=== PATIENT | male | born 1995 ===

== ENCOUNTER 2019-09-16 02:18 | Inpatient (IN) | payer MEDICAID ==
[~2019-09-16] VITALS: Ht 160 cm; Wt 72.8 kg
[2019-09-16] MEDS ORDERED: ACYC800T PO (03:00)
[2019-09-16] MEDS ORDERED: CLIN300C9 PO (03:00)
[2019-09-16] MEDS ORDERED: IBUP-2070 PO (03:00)
[2019-09-16] MEDS ORDERED: HALOPERIDOL 5 MG TABLET PO PRN (05:15)
[2019-09-16] MEDS ORDERED: LORazepam 2 MG TABLET PO PRN (05:15)
[2019-09-16] MEDS ORDERED: ZOLPIDEM TARTRATE 10 MG TABLET PO PRN (05:15)
[2019-09-16 07:53] LABS: BASOPHILS % (AUTO) 0.5 % (0.0-2.0); EOSINOPHILS % (AUTO) 0.1 % (1.0-6.0); HEMATOCRIT 42.5 % (41-53); HEMOGLOBIN 14.7 g/dL (13.5-17.5); LYMPHOCYTES # (AUTO) 1.5 K/uL (1.0-4.8); LYMPHOCYTES % (AUTO) 16.4 % (22.0-44.0); MEAN CORPUSCULAR HEMOGLOBIN 30.4 pg (26.0-34.0); MEAN CORPUSCULAR HGB CONC 34.7 G/dL (31.0-37.0); MEAN CORPUSCULAR VOLUME 88 fL (80-100); MONOCYTES # (AUTO) 1.1 K/uL (0.1-1.0); MONOCYTES % (AUTO) 11.9 % (2.0-9.0); NEUTROPHILS # (AUTO) 6.6 K/uL (1.8-7.7); NEUTROPHILS % (AUTO) 71.1 % (40.0-70.0); PLATELET COUNT (AUTO) 402 K/uL (150-450); RED BLOOD CELL COUNT(AUTO) 4.85 MIL/uL (4.50-5.90); RED CELL DISTRIBUTION WIDTH 13.1 % (11.5-14.5)
[2019-09-16 08:05] LABS: ANION GAP 11 mmol/L (8-16); CALCIUM, TOTAL 8.2 mg/dL (8.8-10.5); CARBON DIOXIDE 27 mmol/L (22-29); CHLORIDE 104 mmol/L (98-107); CREATININE 1.27 mg/dL (0.60-1.30); GLOMERULAR FILTR. RATE CALC > 60 mL/min (>60); GLUCOSE,RANDOM 97 mg/dL (70-110); POTASSIUM 3.4 mmol/L (3.5-5.1); SODIUM SERUM 142 mmol/L (136-145); UREA NITROGEN, BLOOD 14 mg/dL (7-18)
[2019-09-16 08:09] LABS: ALANINE AMINOTRANSFERASE 88 U/L (12-78); ALBUMIN 3.5 g/dL (3.4-5.0); ALKALINE PHOSPHATASE 133 U/L (46-116); ASPARTATE AMINOTRANSFERASE 49 U/L (15-37); BILIRUBIN,TOTAL 0.4 mg/dL (0.1-1.0); TOTAL PROTEIN, SERUM 7.4 g/dL (6.4-8.2)
[2019-09-16 08:10] LABS: AMPHET/METH SCREEN,URINE POSITIVE (NEGATIVE); BARBITURATE SCREEN, URINE NEGATIVE (NEGATIVE); BENZODIAZEPINES SCREEN,URINE NEGATIVE (NEGATIVE); CANNABINOID SCREEN,URINE NEGATIVE (NEGATIVE); COCAINE SCREEN,URINE POSITIVE (NEGATIVE); METHADONE SCREEN, URINE NEGATIVE (NEGATIVE); OPIATE SCREEN,URINE NEGATIVE (NEGATIVE)
[2019-09-16 08:16] LABS: PHENCYCLIDINE SCREEN,URINE NEGATIVE (NEGATIVE)
[2019-09-16] MEDS ORDERED: ACETAMINOPHEN 500 MG TABLET PO ONE (09:30)
[2019-09-16 17:06] VITALS: BP 122/68
[2019-09-16] MEDS ORDERED: POTASSIUM CHLORIDE 20 MEQ ER TABLET PO ONE (18:15)
[2019-09-17 06:10] VITALS: BP 143/98
[2019-09-17] MEDS ORDERED: ACETAMINOPHEN 325 MG TABLET PO PRN (07:15)
[2019-09-17] MEDS ORDERED: PETROLATUM,WHITE 28 GM JELLY TP PRN (07:15)
[2019-09-17] MEDS ORDERED: DOCUSATE SODIUM 100 MG CAPSULE PO PRN (07:15)
[2019-09-17] MEDS ORDERED: MAGNESIUM HYDROXIDE SUSPENSION 30 ML UDCUP PO PRN (07:15)
[2019-09-17] MEDS ORDERED: ALBUTEROL SULFATE HFA 90 MCG/PUFF 8 GM INHALER IH PRN (07:15)
[2019-09-17] MEDS ORDERED: CloNIDine HCL 0.1 MG TABLET PO PRN (07:15)
[2019-09-17] MEDS ORDERED: NICOTINE 14 MG/24 HOUR PATCH TD PRN (07:15)
[2019-09-17] MEDS ORDERED: ONDANSETRON HCL 4 MG TABLET PO PRN (07:15)
[2019-09-17] MEDS ORDERED: MAG HYDROX/AL HYDROX/SIMETH ES 30 ML SUSPENSION UDCUP PO PRN (07:15)
[2019-09-17] MEDS ORDERED: LOPERAMIDE HCL 2 MG CAPSULE PO PRN (07:15)
[2019-09-17] MEDS ORDERED: GuaiFENesin/D-METHORPHAN [SUGAR-FREE] 200-20MG/10 ML SYRUP UDCUP PO PRN (07:15)
[2019-09-17 08:29] VITALS: BP 133/88
[2019-09-17] MEDS: NICOTINE 7 MG/24 HOUR PATCH TD SCH (08:50)
[2019-09-17] MEDS: IBUPROFEN 400 MG TABLET PO PRN ×2 (14:25→18:25)
[2019-09-17 16:04] VITALS: BP 137/87
[2019-09-18 02:18] VITALS: BP 126/84
[2019-09-18 08:14] VITALS: BP 121/78
[2019-09-18] MEDS: NICOTINE 7 MG/24 HOUR PATCH TD SCH (09:12)
== END 2019-09-18 14:34 | disposition home or self-care (01) | DRG 885 ==
LOC: EMS 02:20 → B3A 05:15 → EMS 15:56 → UNDOADMIN 16:45 → B3A 16:45
DX: F29 Unspecified psychosis not due to a substance or known physiological condition (principal); E87.6 Hypokalemia; F10.10 Alcohol abuse, uncomplicated; F32.9 Major depressive disorder, single episode, unspecified; F14.10 Cocaine abuse, uncomplicated; F15.10 Other stimulant abuse, uncomplicated; Z53.20 Procedure and treatment not carried out because of patient's decision for unspecified reasons; F17.210 Nicotine dependence, cigarettes, uncomplicated; Y90.4 Blood alcohol level of 80-99 mg/100 ml; R74.0 Nonspecific elevation of levels of transaminase and lactic acid dehydrogenase [LDH]; F12.10 Cannabis abuse, uncomplicated
CPT/HCPCS: 84132; G0480

== ENCOUNTER 2019-09-18 14:55 | Emergency (ER) | payer MEDICAID ==
[~2019-09-18] VITALS: Ht 172.7 cm; Wt 70.5 kg
[~2019-09-18 14:55] MED LIST: ACYC800T PO; CLIN300C9 PO; IBUP-2070 PO
[2019-09-18 16:34] VITALS: BP 140/77
== END 2019-09-18 18:12 | disposition home or self-care (01) ==
LOC: EMS 15:03
DX: R50.9 Fever, unspecified (principal); Z20.828 Contact with and (suspected) exposure to other viral communicable diseases; F17.210 Nicotine dependence, cigarettes, uncomplicated; F12.90 Cannabis use, unspecified, uncomplicated
CPT/HCPCS: 99283; U0003